=== PATIENT | male | born 1955 | race Caucasian/White ===

== ENCOUNTER → 2024-07-25 14:10 | Outpatient (BNVA) | payer MEDICARE, SELFPAY | PROVIDERS: PCP Family Medicine; Visit Provider Family Medicine | DX: S82.841A Displaced bimalleolar fracture of right lower leg, initial encounter for closed fracture (principal); M25.571 Pain in right ankle and joints of right foot; M25.871 Other specified joint disorders, right ankle and foot | CPT/HCPCS: 73590; 73600 ==

== ENCOUNTER 2024-10-19 06:30 | Outpatient (RCR) | payer MEDICARE, SELFPAY | END 2024-11-15 23:59 | disposition home or self-care (01) | LOC: GPT 06:30 | PROVIDERS: Visit Provider Physician Assistant | DX: S82.891D Other fracture of right lower leg, subsequent encounter for closed fracture with routine healing (principal); X58.XXXD Exposure to other specified factors, subsequent encounter | CPT/HCPCS: 97110; 97112; 97140; 97161 ==

== ENCOUNTER 2024-11-16 06:00 | Outpatient (RCR) | payer MEDICARE, SELFPAY | END 2024-12-16 23:59 | disposition home or self-care (01) | LOC: GPT 06:00 | PROVIDERS: Visit Provider Physician Assistant | DX: S82.891D Other fracture of right lower leg, subsequent encounter for closed fracture with routine healing (principal); X58.XXXD Exposure to other specified factors, subsequent encounter | CPT/HCPCS: 97110; 97140; 97530 ==

== ENCOUNTER 2024-12-17 06:00 | Outpatient (RCR) | payer MEDICARE, SELFPAY | END 2025-01-15 23:59 | disposition home or self-care (01) | LOC: GPT 06:00 | PROVIDERS: Visit Provider Physician Assistant | DX: S82.891D Other fracture of right lower leg, subsequent encounter for closed fracture with routine healing (principal); X58.XXXD Exposure to other specified factors, subsequent encounter | CPT/HCPCS: 97110; 97112; 97140; 97164; 97530 ==

== ENCOUNTER 2025-01-16 05:00 | Outpatient (RCR) | payer MEDICARE, SELFPAY | END 2025-02-15 23:59 | disposition home or self-care (01) | LOC: GPT 05:00 | PROVIDERS: Visit Provider Physician Assistant | DX: S82.891D Other fracture of right lower leg, subsequent encounter for closed fracture with routine healing (principal); X58.XXXD Exposure to other specified factors, subsequent encounter | CPT/HCPCS: 97110; 97112; 97140; 97164; 97530 ==

== ENCOUNTER 2025-02-16 05:00 | Outpatient (RCR) | payer MEDICARE, SELFPAY | END 2025-03-17 23:59 | disposition home or self-care (01) | LOC: GPT 05:00 | PROVIDERS: Visit Provider Physician Assistant | DX: S82.891D Other fracture of right lower leg, subsequent encounter for closed fracture with routine healing (principal); X58.XXXD Exposure to other specified factors, subsequent encounter | CPT/HCPCS: 97112; 97530 ==